=== PATIENT | female | born 1995 | race Caucasian/White ===

== ENCOUNTER → 2024-04-23 | Outpatient (CLI) | payer OTHER, SELFPAY ==
[2024-04-23 12:07] LABS: Collection Type, Urine Clean Catch; RBC,Urine 0 /hpf (0-3)
[2024-04-23 13:41] LABS: Bacteria,Urine Rare; Bilirubin,Urine Negative (Negative); Blood,Urine Negative (Negative); Clarity,Urine Clear (Clear/Hazy); Color,Urine Yellow (Lt Yel-Yel); Glucose, Urine Negative (Negative); Ketones,Urine Negative (Negative); Leukocyte Esterase,Urine Negative (Negative); Nitrite,Urine Negative (Negative); Protein,Urine Negative (Neg - Trace); Specific Gravity,Urine 1.007 (1.001-1.035); Squamous Epithelial Cell,Urine < 1 /hpf (0-5); Urobilinogen,Urine Negative mg/dL (0.0-1.0); WBC,Urine 3 /hpf (0-5)
== END | disposition home or self-care (01) ==
LOC: SLDO 11:45
PROVIDERS: PCP Family Medicine; Referring Provider Family Medicine; Visit Provider Family Medicine
DX: N39.0 Urinary tract infection, site not specified (principal)
CPT/HCPCS: 81001; 87086

== ENCOUNTER → 2024-05-05 | Outpatient (CLI) | payer OTHER, SELFPAY ==
--- NOTE | 2024-05-05 | XR_ITS ---
Examination: Urinary bladder sonography complete TECHNIQUE: By resolution grayscale sonographic images urinary bladder Exam date and time: May 05, 2024 1347 hours INDICATIONS: Dysuria one month FINDINGS: No bladder mass or bladder calculi Bladder prevoid volume 575 cc postvoid volume 20 cc Urinary bladder wall measures 0.3 cm IMPRESSION: No bladder mass or bladder calculi
--- NOTE | 2024-05-05 13:30 | XR_ITS ---
Examination: Pelvic ultrasound, transabdominal, complete Technique: Transabdominal ultrasound of the pelvis performed using grayscale imaging Date and time of exam: May 05, 2024 1336 hours INDICATIONS: Dysuria one month FINDINGS: Uterus 8.4 x 4.0 x 5.7 cm No uterine mass or intrauterine gestation Intrauterine device satisfactory position Right ovary 3.1 x 2.3 cm arterial flow Left ovary 3.3 x 2.4 cm arterial flow 23 x 12 mm cyst IMPRESSION: Intrauterine device satisfactory position Small left ovarian cyst 23 x 12 x 12 mm
== END | disposition home or self-care (01) ==
LOC: CDIM 13:11
PROVIDERS: PCP Family Medicine; Referring Provider Physician Assistant; Visit Provider Physician Assistant
DX: N83.202 Unspecified ovarian cyst, left side (principal); Z30.431 Encounter for routine checking of intrauterine contraceptive device
CPT/HCPCS: 76856; 76857

== ENCOUNTER → 2024-08-21 | Outpatient (BNVA) | payer OTHER, SELFPAY | END | disposition home or self-care (01) | PROVIDERS: PCP Family Medicine; Referring Provider Family Medicine; Visit Provider Urology | DX: R30.0 Dysuria (principal); F17.290 Nicotine dependence, other tobacco product, uncomplicated | CPT/HCPCS: 81003; 99212; G0463 ==